=== PATIENT | male | born 1995 | race Caucasian/White ===

== ENCOUNTER 2020-12-04 22:37 | Emergency (ER) | payer BC ==
[~2020-12-04] VITALS: Ht 185.4 cm; Wt 68.0 kg
--- NOTE | 2020-12-04 22:50 | NUR ---
Patient brought in from a Rehab Facility for a "Spider Bite" located on patients right calf. Patient is A&Ox4 - able to make needs known. No other issues present. VSS.
[2020-12-04] MEDS ORDERED: SULF1TAB48 PO (23:52)
[2020-12-04 23:57] VITALS: BP 130/66
--- NOTE | 2020-12-04 23:57 | NUR ---
Patient discharged to home in stable condition. Written and verbal after care instructions given. Patient verbalizes understanding of instructions. Stressed follow up or return to ER for worsening s/s. VSS. Steady gait. All belongings with patient.
== END 2020-12-04 23:56 | disposition home or self-care (01) ==
LOC: ER 22:39
DX: L02.415 Cutaneous abscess of right lower limb (principal); J45.909 Unspecified asthma, uncomplicated
CPT/HCPCS: A4663